=== PATIENT | male | born 1995 | race Hispanic/Latino ===

== ENCOUNTER 2017-12-13 23:01 | Emergency (ER) | payer OTHER ==
[2017-12-13] MEDS ORDERED: CHLORHEXIDINE GLUCONATE 4 % 15 ML UD TOP ONE (23:21)
[2017-12-13 23:31] VITALS: TEMP 98.1; O2SAT 97
--- NOTE | 2017-12-13 23:39 | ED.PDOC ---
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 Timing/Duration: just prior to arrival Severity: moderate Location: extremities - right hand Improving Factors: nothing Worsening Factors: movement Associated Symptoms: blisters Allergies/Adverse Reactions: Allergies NO KNOWN ALLERGY Allergy (Verified 12/13/17 23:11) Home Medications: Ambulatory Orders Acetamin W/Cod #3 Tab [Tylenol w/CODEINE #3] 1 ea PO Q6HRS PRN #20 tab 12/13/17 Albuterol Inhaler [Ventolin Hfa Inhaler] 1 puff INH PRN 12/13/17 Silver Sulfadiazine [Silvadene] 1 % EX DAILY 14 Days #50 gm 12/13/17 Review of Systems - Review of Systems Constitutional: States: no symptoms reported EENTM: States: no symptoms reported Respiratory: States: no symptoms reported Cardiology: States: no symptoms reported Skin: States: see HPI All other Systems: Reviewed and Negative, No Change from Baseline Past Medical History (General) - Patient Medical History Hx Asthma: Yes Surgical History: no surgical history - Vaccination History Hx Tetanus, Diphtheria Vaccination: No Hx Influenza Vaccination: No - Social History Hx Tobacco Use: No Hx Alcohol Use: No Hx Physical Abuse: No Hx Emotional Abuse: No Family Medical History - Family History Mother Family History: Unknown Physical Exam - Physical Exam General Appearance: Alert, Comfortable, No apparent distress Eyes, Ears, Nose, Throat Exam: normal ENT inspection Neck: non-tender, full range of motion, supple Cardiovascular/Chest: normal peripheral pulses, regular rate, rhythm, no murmur Respiratory: lungs clear, no respiratory distress Gastrointestinal/Abdominal: non tender, soft, no organomegaly Back Exam: normal inspection, no CVA tenderness Extremity: normal inspection, no calf tenderness Neurologic: no motor/sensory deficits, alert, oriented x 3 Skin Exam: warm/dry, normal color Skin Problem Location: upper extremities - right hand Skin Character: other - multiple blisters palmar aspect right hand Progress - Progress Progress: 12/13/17 23:44 Vital Signs - 8 hr 12/13/17 23:15 Temperature 98.1 F Pulse Rate [ 94 H left] Respiratory 18 Rate Blood Pressure 146/109 [Left Arm] O2 Sat by Pulse 97 Oximetry 12/13/17 23:45 burn right hand cleanse with hibiclens,dried then applied Silvadene cream covered with sterile fluffy dressing 12/14/17 00:06 Departure - Departure Clinical Impression: Second degree burn Time of Disposition: 23:55 Disposition: Discharge to Home or Self Care Condition: Fair Departure Forms: ED Discharge - Pt. Copy, Patient Portal Self Enrollment Instructions: DI for [place] Prescriptions: Acetamin W/Cod #3 Tab [Tylenol w/CODEINE #3] 1 ea PO Q6HRS PRN #20 tab PRN Reason: Pain Silver Sulfadiazine [Silvadene] 1 % EX DAILY 14 Days #50 gm Home Medications: Ambulatory Orders Acetamin W/Cod #3 Tab [Tylenol w/CODEINE #3] 1 ea PO Q6HRS PRN #20 tab 12/13/17 Albuterol Inhaler [Ventolin Hfa Inhaler] 1 puff INH PRN 12/13/17 Silver Sulfadiazine [Silvadene] 1 % EX DAILY 14 Days #50 gm 12/13/17 Additional Instructions: NEED TO FOLLOW UP WITH WORK COMP 16 December 2017
[2017-12-13] MEDS ORDERED: TETANUS,DIPHTHERIA,PERTUSSIS 1 EA SYG IM ONE (23:46)
[2017-12-13] MEDS ORDERED: SILVER SULFADIAZINE 1 % 25 GM TUBE TOP ONE ×2 (23:47)
[2017-12-13] MEDS ORDERED: HYDROcodone 10MG/APAP 325MG 1 EA TAB PO ONE (23:47)
[2017-12-14] MEDS ORDERED: HYDROCOD/APAP 7.5/325 (ER DISP) #3 TAB PO ONE (00:03)
[2017-12-14 00:24] VITALS: BP 124/80
== END 2017-12-14 00:23 | disposition home or self-care (01) ==
LOC: ER 23:01
DX: T23.251A Burn of second degree of right palm, initial encounter (principal); Z23 Encounter for immunization; X19.XXXA Contact with other heat and hot substances, initial encounter; Y92.89 Other specified places as the place of occurrence of the external cause; Y99.0 Civilian activity done for income or pay